=== PATIENT | female | born 1960 | race Caucasian/White ===

== ENCOUNTER 2018-06-26 14:26 | Outpatient (CLI) | payer OTHER ==
--- NOTE | 2018-06-27 09:33 | XRAY Report ---
Reason: PAIN IN LEFT FOOT Procedure Date: 06/26/2018 Accession Number: [id number] / [id number] Procedure: XR - Foot 3 View LT CPT Code: FULL RESULT: EXAM: LEFT FOOT RADIOGRAPHY EXAM DATE: 06/26/2018 02:58 PM. CLINICAL HISTORY: PAIN IN LEFT FOOT. COMPARISON: None. TECHNIQUE: 3 views. FINDINGS: Bones: No fractures or bone lesions. Joints: Mild first MTP joint DJD. No dislocation. Soft Tissues: Unremarkable. IMPRESSION: 1. No acute osseous abnormality. RADIA
== END 2018-06-26 14:27 | disposition home or self-care (01) ==
LOC: DI 14:26
PROVIDERS: ATTEND Internal Medicine
DX: M79.672 Pain in left foot (principal)

== ENCOUNTER 2018-08-04 16:42 | Outpatient (CLI) | payer MEDICARE ==
--- NOTE | 2018-08-07 00:07 | XRAY Report ---
Reason: PAIN IN RT ELBOW Procedure Date: 08/04/2018 Accession Number: [id number] / [id number] Procedure: XR - Elbow 2 View RT CPT Code: FULL RESULT: EXAM: RIGHT ELBOW RADIOGRAPHY EXAM DATE: 08/04/2018 05:10 PM. CLINICAL HISTORY: PAIN IN RT ELBOW. COMPARISON: None. TECHNIQUE: 2 views. FINDINGS: Bones: Normal. No fractures or bone lesions. Joints: Normal. No effusion. No subluxation. Soft Tissues: Normal. No soft tissue swelling. Small lateral epicondyle bone spur at the distal humerus. Tiny coronoid process bone spur. IMPRESSION: No acute findings. RADIA
== END 2018-08-04 16:43 | disposition home or self-care (01) ==
LOC: DI 16:42
PROVIDERS: ATTEND Internal Medicine
DX: M25.521 Pain in right elbow (principal)

== ENCOUNTER 2018-11-17 20:22 | Emergency (ER) | payer MEDICARE ==
--- NOTE | 2018-11-17 21:02 | ED Physician Documentation ---
PD HPI UPPER EXT INJURY - Stated complaint Stated Complaint: LT SHOULDER/NECK PX - Chief complaint Chief Complaint: Ext Problem - History obtained from History obtained from: Patient - History of Present Illness Location: Left, Shoulder, Other (with some pain to left side of neck) Type of injury: Blunt / blow ([place] and it struck left shoulder and pushed her/pinned her in the opening, until her pried open the door (several seconds). she felt her head get jostled as this happened and is having some pain left lateral neck from shoulder/clavicle area to the side of the head. No numbness nor weakness in arm. No head impact injury.) Where [place] Timing - onset: How many hours ago (1) Timing - duration: Hours (1) Timing - details: Abrupt onset, Still present Worsened by: Moving (left shoulder and ROM of the neck) Associated symptoms: No: Weakness, Numbness, Swelling Similar symptoms before: Has not had sx before Recently seen: Not recently seen Review of Systems Skin: denies: Abrasion (s), Laceration (s) Musculoskeletal: reports: Neck pain (left side laterally) Neurologic: denies: Focal weakness, Numbness, Headache PD PAST MEDICAL HISTORY - Past Medical History Cardiovascular: None Musculoskeletal: None - 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 - Present Medications Home Medications: Ambulatory Orders Medication Instructions Recorded Confirmed FLUoxetine [PROzac] 10 mg PO DAILY 11/17/18 11/17/18 Naproxen 375 mg PO BID #20 tablet 11/17/18 Oxycodone HCl/Acetaminophen 1 each PO Q6H PRN #14 tablet 11/17/18 [Percocet 5-325 mg Tablet] Prazosin [Minipress] 1 mg PO DAILY 11/17/18 11/17/18 Progesterone,Micronized 100 mg PO 11/17/18 [Progesterone] - Allergies Allergies/Adverse Reactions: Allergies Allergy/AdvReac Type Severity Reaction Status Date / Time codeine Allergy Rash Verified 11/17/18 20:33 - Social History Does the pt smoke?: No Smoking Status: Never smoker Does the pt drink ETOH?: No PD ED PE NORMAL - Vitals Vital signs reviewed: Yes - General General: Alert and oriented X 3, Well developed/nourished, Other (appears uncomfortable with left shoulder movement and is holding it guardedly to her side. ) - HEENT HEENT: Atraumatic - Neck Neck: Supple, no meningeal sign, No bony TTP, Other (tender lateral left neck in SCM muscle area. ) - Cardiac Cardiac: RRR, No murmur - Respiratory Respiratory: Clear bilaterally - Abdomen Abdomen: Soft, Non tender - Derm Derm: Normal color, Warm and dry - Extremities Extremities: Other (tender at lateral shoulder and some to AC area without deformity. ) - Neuro Neuro: Alert and oriented X 3, No motor deficit, No sensory deficit, Normal speech Eye Opening: Spontaneous Motor: Obeys Commands Verbal: Oriented GCS Score: 15 Results - Vitals Vitals: Vital Signs - 24 hr 11/17/18 11/17/18 20:26 22:51 Temperature 37.1 C 35.7 C L Heart Rate 72 67 Respiratory 19 19 Rate Blood Pressure 108/79 118/65 O2 Saturation 95 95 Oxygen O2 Source Room air - Rads (name of study) left shoulder Radiology: Prelim report reviewed, EMP read contemporaneously (no fractures.), See rad report PD MEDICAL DECISION MAKING - ED course Complexity details: reviewed results, considered differential (likely contusion though can be some AC strain. Will treat with sling. Got xray to ensure no fracture at distal clavicle. The pain to the left neck seems muscular of the SCM muscles. ), d/w patient Departure - Departure Disposition: 01 Home, Self Care Clinical Impression: Contusion of left shoulder Qualifiers: Encounter type: initial encounter Qualified Code(s): S40.012A - Contusion of left shoulder, initial encounter Neck muscle strain Qualifiers: Encounter type: initial encounter Qualified Code(s): S16.1XXA - Strain of muscle, fascia and tendon at neck level, initial encounter Condition: Stable Record reviewed to determine appropriate education?: Yes Instructions: ED Sprain Shoulder Follow-Up: Gonsalo Quezada MD [Primary Care Provider] - Prescriptions: Naproxen 375 mg PO BID #20 tablet Oxycodone HCl/Acetaminophen [Percocet 5-325 mg Tablet] 1 each PO Q6H PRN #14 tablet PRN Reason: pain Comments: There are not any fractures seen on x-ray. It sounds like a bruising of the shoulder and may be some strain of the shoulder ligaments. Also sounds like some muscle strain around the neck. Use the sling as needed for comfort over the next several days to week. Gentle range of motion the shoulder periodically. Use naproxen or ibuprofen 2-3 times daily for the next several days. Add Tylenol or Percocet if needed for pain. Follow-up if not better over the next week. Discharge Date/Time: 11/17/18 22:52
[2018-11-17] MEDS ORDERED: fentaNYL 100 MCG/2 ML VIAL IM STA (21:47)
[2018-11-17] MEDS ORDERED: KETOROLAC 30 MG/ML VIAL IM STA (21:47)
[2018-11-17] MEDS ORDERED: oxyCODONE/ACET 5/325 Prepack 4 PO STA (22:20)
--- NOTE | 2018-11-17 22:27 | XRAY Report ---
Reason: [place] Procedure Date: 11/17/2018 Accession Number: [id number] / [id number] Procedure: XR - Shoulder 3 View LT CPT Code: FULL RESULT: EXAM: LEFT SHOULDER RADIOGRAPHY EXAM DATE: 11/17/2018 10:19 PM. CLINICAL HISTORY: Left shoulder pain. [place] COMPARISON: None. TECHNIQUE: 3 views. FINDINGS: Bones: Normal. No fracture or bone lesion. Joints: The glenohumeral and acromioclavicular joints are normal. Soft tissues: The visualized hemithorax is unremarkable. No soft tissue swelling. IMPRESSION: Normal shoulder radiography. RADIA
[2018-11-17 22:52] VITALS: BP 118/65
== END 2018-11-17 22:52 | disposition home or self-care (01) ==
LOC: ED 20:22
DX: S16.1XXA Strain of muscle, fascia and tendon at neck level, initial encounter (principal); S40.012A Contusion of left shoulder, initial encounter; W24.0XXA Contact with lifting devices, not elsewhere classified, initial encounter; Y92.814 Boat as the place of occurrence of the external cause
CPT/HCPCS: 96372; 99283

== ENCOUNTER 2018-11-25 09:54 | Outpatient (CLI) | payer MEDICARE ==
--- NOTE | 2018-11-26 05:58 | XRAY Report ---
Reason: NECK PAIN Procedure Date: 11/25/2018 Accession Number: [id number] / [id number] Procedure: XR - Cervical Spine 2 View CPT Code: FULL RESULT: EXAM: CERVICAL SPINE RADIOGRAPHY EXAM DATE: 11/25/2018 10:08 AM. CLINICAL HISTORY: Neck pain. COMPARISONS: None. TECHNIQUE: 3 views. FINDINGS: Alignment: Normal. No spondylolisthesis or scoliosis. Bones: The cervical vertebral bodies and posterior elements are well visualized from the skull base through C7-T1. No fractures or bone lesions. Degenerative changes: Severe diffuse cervical degenerative changes, worst at the C5-C6 level. Next worst levels are C3-C4 and C6-C7. Soft Tissues: Normal. No prevertebral soft tissue swelling. The visualized lung apices are clear. IMPRESSION: Advanced cervical spondylosis, worst at C5-C6, but without acute abnormality seen. RADIA
== END 2018-11-25 09:55 | disposition home or self-care (01) ==
LOC: DI 09:54
PROVIDERS: ATTEND Family Medicine
DX: M47.812 Spondylosis without myelopathy or radiculopathy, cervical region (principal)
CPT/HCPCS: 72040

== ENCOUNTER 2018-12-27 18:54 | Outpatient (CLI) | payer MEDICARE ==
--- NOTE | 2018-12-28 15:19 | MRI Report ---
Reason: DEGENERATIVE DISC DISEASE, CERVICAL Procedure Date: 12/27/2018 Accession Number: [id number] / [id number] Procedure: MRI - Cervical Spine W/O CPT Code: FULL RESULT: EXAM: MRI CERVICAL SPINE WITHOUT CONTRAST EXAM DATE: 12/27/2018 07:12 PM. CLINICAL HISTORY: Neck pain after being hit by an elevator door. Left upper limb numbness. COMPARISONS: CERVICAL SPINE 2 VIEW 11/25/2018 9:59 AM. TECHNIQUE: Multiplanar, multisequence T1-weighted and fluid-sensitive sequences of the cervical spine without contrast. Other: None. FINDINGS: Neurologic Structures: The visualized posterior fossa structures are unremarkable. There is minimal cord effacement at C4-C5 secondary to bony canal narrowing. There is no cord edema or atrophy. Alignment: There is an 18-degree levoscoliosis centered on C5. There is a focal kyphosis at C6-C7. Bone Marrow: No gross fractures or bone lesions. No marrow edema. Interspace Levels/Facets: C1-C2: Unremarkable. C2-C3: Mild facet osteoarthritis causes minimal foraminal narrowing. The canal is patent. C3-C4: There is a broad-based posterior disk osteophyte complex causing mild canal narrowing. An uncovertebral osteophyte causes moderate right foraminal narrowing. There is minimal left foraminal narrowing. C4-C5: There is a broad-based posterior disk osteophyte complex causing mild canal narrowing. There is moderate right and mild left foraminal narrowing. C5-C6: There is severe disk desiccation and loss of disk height. There is a broad-based posterior disk osteophyte complex causing mild canal and foraminal narrowing. C6-C7: There is a central and right paracentral disk osteophyte complex causing mild canal narrowing with cord effacement. There is mild bilateral foraminal narrowing. C7-T1: Unremarkable. Musculature: Normal. No edema or fatty atrophy. Other: The paravertebral and prevertebral soft tissues are normal. IMPRESSION: 1. Kypholevoscoliosis centered at C5. 2. C2-C3: Mild facet osteoarthritis causes minimal foraminal narrowing. 3. C3-C4: There is mild canal narrowing. There is minimal left foraminal narrowing. 4. C4-C5: There is a broad-based posterior disk osteophyte complex causing mild canal narrowing. There is moderate right and mild left foraminal narrowing. 5. C5-C6: There is severe disk desiccation and loss of disk height. There is a broad-based posterior disk osteophyte complex causing mild canal and foraminal narrowing. 6. C6-C7: There is a central and right paracentral disk osteophyte complex causing mild canal narrowing with cord effacement. There is mild bilateral foraminal narrowing. RADIA
== END 2018-12-27 18:55 | disposition home or self-care (01) ==
LOC: DI 18:54
PROVIDERS: ATTEND Orthopaedic Surgery
DX: M50.30 Other cervical disc degeneration, unspecified cervical region (principal); M47.812 Spondylosis without myelopathy or radiculopathy, cervical region; M25.78 Osteophyte, vertebrae; M48.02 Spinal stenosis, cervical region; M41.82 Other forms of scoliosis, cervical region
CPT/HCPCS: 72141

== ENCOUNTER 2019-03-06 15:37 | Outpatient (CLI) | payer MEDICARE, MEDICAID ==
--- NOTE | 2019-03-21 08:49 | Mammography Report ---
Reason: SCREENING MAMMO Procedure Date: 03/06/2019 Accession Number: [id number] / [id number] Procedure: ELROY - Screening Mammo w/Eliezer CPT Code: FULL RESULT: EXAM: Screening Mammo w/Eliezer DATE: 03/06/2019 4:49 PM CLINICAL HISTORY: Screening TECHNIQUE: (B) - Bilateral CC and MLO views were obtained. COMPARISON: None PARENCHYMAL PATTERN: (A) - The breasts demonstrate scattered fibroglandular densities bilaterally. FINDINGS: In the RIGHT breast, there is a sharply marginated lobulated subareolar mass seen on both 2-D and 3-D mammography. Otherwise, there are no suspicious masses, calcifications, or areas of distortion. IMPRESSION: Incomplete examination. BI-RADS category 0. RECOMMENDATION: (ADDUS) - Targeted ultrasound recommended. Right breast. BI-RADS CATEGORY: (0) - Incomplete Examination - need additional evaluation. STANDARD QUALIFYING STATEMENTS: 1. This examination was not reviewed with the aid of Computer-Aided Detection (CAD). 2. A negative or benign imaging report should not preclude biopsy if clinically suspicious findings are present. 3. Dense breasts may obscure an underlying neoplasm. 4. This examination was reviewed with the aid of 3D breast imaging (tomosynthesis).
== END 2019-03-06 15:38 | disposition home or self-care (01) ==
LOC: DI 15:37
DX: Z12.31 Encounter for screening mammogram for malignant neoplasm of breast (principal); R92.8 Other abnormal and inconclusive findings on diagnostic imaging of breast
CPT/HCPCS: 77063; 77067

== ENCOUNTER 2019-05-09 14:59 | Outpatient (CLI) | payer MEDICARE, MEDICAID ==
[2019-05-09 17:40] LABS: ALBUMIN 4.5 g/dL (3.2-5.5); ALBUMIN/GLOBULIN RATIO 1.2 (1.0-2.2); ALKALINE PHOSPHATASE 60 IU/L (42-121); ALT ALANINE AMINOTRANSFERASE 33 IU/L (10-60); AST ASPARTATE AMINOTRANSFERASE 29 IU/L (10-42); BILIRUBIN,TOTAL 0.7 mg/dL (0.2-1.0); BUN - BLOOD UREA NITROGEN 12 mg/dL (6-20); CALCIUM 9.1 mg/dL (8.5-10.3); CARBON DIOXIDE - CO2 26 mmol/L (21-32); CHLORIDE 104 mmol/L (101-111); CHOL/HDL RATIO 4.6 (<4.4); CHOLESTEROL 233 mg/dL; CREATININE 0.9 mg/dL (0.4-1.0); GFR - MDRD 64 (>89); GLUCOSE 100 mg/dL (70-100); HDL CHOLESTEROL 51 mg/dL; LDL CHOLESTEROL,CALCULATED 154 mg/dL; SODIUM 139 mmol/L (135-145); TOTAL PROTEIN 8.2 g/dL (6.7-8.2); VLDL CHOLESTEROL 28 mg/dL
[2019-05-09 17:53] LABS: HB2 TOTAL 14.9 g/dL; HEMOGLOBIN A1C 0.59 g/dL; HEMOGLOBIN A1C % 5.8 % (4.6-6.2)
== END 2019-05-09 15:00 | disposition home or self-care (01) ==
LOC: LAB.S 14:59
PROVIDERS: ATTEND Internal Medicine
DX: E66.9 Obesity, unspecified (principal)
CPT/HCPCS: 36415; 80053; 80061; 83036; 83721; 84443

== ENCOUNTER 2020-06-22 09:06 | Emergency (ER) | payer MEDICARE, MEDICAID ==
[2020-06-22] MEDS ORDERED: KETOROLAC 15 MG/ML VIAL IVP STA ×2 (09:42→10:22)
[2020-06-22] MEDS ORDERED: LACTATED RINGERS 2,000 ML IV STA (09:43)
[2020-06-22 09:47] LABS: BASOPHILS # (AUTO) 0.1 10^3/uL (0.0-0.1); BASOPHILS % (AUTO) 0.7 %; EOSINOPHILS # (AUTO) 0.4 10^3/uL (0.0-0.7); EOSINOPHILS % (AUTO) 4.2 %; HGB - HEMOGLOBIN 14.3 g/dL (12.0-16.0); LYMPHOCYTES # (AUTO) 2.4 10^3/uL (1.5-3.5); LYMPHOCYTES % (AUTO) 27.4 %; MEAN CORPUSCULAR HEMOGLOBIN 29.3 pg (27.0-31.0); MEAN CORPUSCULAR HGB CONC 32.4 g/dL (32.0-36.0); MEAN CORPUSCULAR VOLUME 90.4 fL (81.0-99.0); MEAN PLATELET VOLUME 10.7 fL (7.9-10.8); MONOCYTES # (AUTO) 0.6 10^3/uL (0.0-1.0); MONOCYTES % (AUTO) 6.8 %; NEUTROPHILS # (AUTO) 5.3 10^3/uL (1.5-6.6); NEUTROPHILS % (AUTO) 60.6 %; PLT - PLATELET COUNT 263 10^3/uL (130-450); RED BLOOD COUNT 4.88 10^6/uL (4.20-5.40); RED CELL DISTRIBUTION WIDTH 13.3 % (12.0-15.0); WHITE BLOOD COUNT 8.8 x10^3/uL (4.8-10.8)
[2020-06-22 09:59] LABS: ALBUMIN/GLOBULIN RATIO 1.3 (1.0-2.2); CALCIUM 9.3 mg/dL (8.5-10.3); CREATININE 0.8 mg/dL (0.4-1.0); TOTAL PROTEIN 7.2 g/dL (6.7-8.2)
[2020-06-22] MEDS ORDERED: IOVERSOL 320 100 ML VIAL IVP ONE ×2 (09:59→11:18)
[2020-06-22] MEDS ORDERED: ONDANSETRON 4 MG/2 ML VIAL IVP STA (10:22)
--- NOTE | 2020-06-22 11:08 | CT Report ---
PROCEDURE: Abdomen/Pelvis W INDICATIONS: Right flank pain, diffuse abd pain CONTRAST: IV CONTRAST: Optiray 320 ml: 100 PO CONTRAST: *NO PO CONTRAST TECHNIQUE: After the administration of intravenous contrast, 5 mm thick sections acquired from the diaphragms to the symphysis. 5 mm thick coronal and sagittal reformats were acquired. For radiation dose reducti on, the following was used: automated exposure control, adjustment of mA and/or kV according to joshua ent size. COMPARISON: None. FINDINGS: Image quality: Excellent. ABDOMEN: Lung bases: There is a 2 mm nodule in the lingula (series 4 image /41). Heart size is normal. Solid organs: Hepatic steatosis. There is a 7 mm low-density nodule in the hepatic dome, likely a cy st. Liver and spleen are normal in size and enhancement. Gallbladder is surgically absent. Biliary system is non dilated. Pancreas enhances normally. No adrenal nodules. Kidneys demonstrate normal size and enhancement, without hydronephrosis. Peritoneum and bowel: There are scattered colonic diverticula. No CT findings to suggest acute diver ticulitis. Possible mild colonic wall thickening involving cecum and ascending colon, as well as sigm oid colon. Appendix is not visualized. No CT findings to suggest acute appendicitis. Bowel loops demo nstrate normal caliber. No free fluid or air. Nodes and vessels: No retroperitoneal or mesenteric adenopathy by size criteria. Aorta and inferior vena cava are normal in size. Miscellaneous: Small fat-containing umbilical hernia is noted. PELVIS: Genitourinary: Bladder wall thickness is normal. Miscellaneous: No inguinal hernias or adenopathy. Bones: No suspicious bony lesions. No vertebral body compression fractures. IMPRESSION: 1. Possible mild colitis involving the cecum, ascending colon and sigmoid colon. 2. Diverticulosis without acute diverticulitis. 3. No findings to suggest small bowel obstruction. 4. Hepatic steatosis. A 7 mm low-density nodule in the hepatic dome is most likely a cyst. 5. A 2 mm nodule in the lingula. Fleischner Society criteria for SOLID lung nodule followup. Nodule size (mm) Low-risk patient High-risk patient ?4 No follow-up needed Follow-up at 12 mo; if no change, no further follow-up >4-[address] at 12 mo; if no change, no further follow-up needed. Initial follow-up CT at 6-12 mo, then 18-24 mo if no change. >6-8 Initial follow-up CT at 6-12 mo, then 18-24 mo if no change. Initial follow-up CT at 3-6 mo, then 9-12 mo and 24 mo if no change. >8 Follow-[address] at 3, 9, 24 mo. Or PET and/or biopsy. Same as for low-risk pts. Reviewed by: Estrella Spann MD on 06/22/2020 11:06 AM PST Approved by: Estrella Spann MD on 06/22/2020 11:06 AM PST Station ID: [id number]
[2020-06-22 11:48] LABS: BILIRUBIN,URINE NEGATIVE (NEGATIVE); GLUCOSE, URINE (UA) NEGATIVE (NEGATIVE); KETONES,URINE (UA) NEGATIVE (NEGATIVE); LEUKOCYTE ESTERASE, URINE NEGATIVE (NEGATIVE); NITRITE,URINE NEGATIVE (NEGATIVE); OCCULT BLOOD,URINE SMALL (NEGATIVE); PROTEIN,URINE NEGATIVE (NEGATIVE); UROBILINOGEN,URINE 0.2 (NORMAL) E.U./dL (NORMAL)
[2020-06-22 12:03] LABS: CLARITY,URINE CLEAR (CLEAR)
[2020-06-22 12:22] LABS: BACTERIA,URINE None Seen /HPF (None Seen); RBC,URINE 0-5 /HPF (0-5); SQUAMOUS EPITHELIAL CELL,UR RARE Squamous (<= Few)
[2020-06-22] MEDS ORDERED: fentaNYL 100 MCG/2 ML VIAL IVP STA (12:30)
--- NOTE | 2020-06-22 13:12 | ED Physician Documentation ---
History of Present Illness - Stated complaint Stated Complaint: R SIDE PX - Chief complaint Chief Complaint: Back Pain - History obtained from History obtained from: Patient - Additonal information Additional information: 60-year-old woman, previously healthy, PSH hysterectomy, cholecystectomy p/w R flank pain radiating to front X 2 days, gradual onset, intermittent, severe, sharp quality, worse with deep breathing, a/w nausea but no vomiting. no fevers, diarrhea, urinary sx, cough, sob, cp. no traumatic injury. Review of Systems Ten Systems: 10 systems reviewed and negative Constitutional: denies: Fever, Chills GI: reports: Abdominal Pain, Nausea. denies: Vomiting : denies: Dysuria Musculoskeletal: reports: Back pain PD PAST MEDICAL HISTORY - Past Medical History Past Medical History: Yes Cardiovascular: None Respiratory: None Neuro: None Endocrine/Autoimmune: None GI: None RELIEF MATE: None : None HEENT: None Psych: Depression, Anxiety, Post traumatic stress disorder Musculoskeletal: None Derm: None - Past Surgical History General: Cholecystectomy Ortho: Arthroscopic surgery /RELIEF MATE: Hysterectomy HEENT: Tonsil/Adenoidectomy - Present Medications Home Medications: Ambulatory Orders Medication Instructions Recorded Confirmed FLUoxetine [PROzac] 10 mg PO BID 11/17/18 06/22/20 oxyCODONE/ACET 5/325 [Percocet 5 1 each PO Q4-6H PRN 2 Days #8 06/22/20 mg/325 mg] tablet - Allergies Allergies/Adverse Reactions: Allergies Allergy/AdvReac Type Severity Reaction Status Date / Time codeine Allergy Rash Verified 06/22/20 09:17 morphine Allergy Headache Verified 06/22/20 09:17 - Social History Does the pt smoke?: No Smoking Status: Never smoker Does the pt drink ETOH?: No Does the pt have substance abuse?: No - Immunizations Immunizations are current?: Yes PD ED PE NORMAL - Vitals Vital signs reviewed: Yes - General General: Alert and oriented X 3 - HEENT HEENT: Atraumatic, PERRL, EOMI - Neck Neck: Supple, no meningeal sign - Cardiac Cardiac: RRR - Respiratory Respiratory: No respiratory distress, Clear bilaterally - Abdomen Abdomen: Other (diffuse discomfort to palpation. negative fermin sign) - Female Female : Deferred - Rectal Rectal: Deferred - Back Back: Other (R CVA ttp) - Derm Derm: Normal color - Extremities Extremities: No deformity - Neuro Neuro: Alert and oriented X 3 - Psych Psych: Normal mood, Normal affect Results - Vitals Vitals: Vital Signs - 24 hr 06/22/20 06/22/20 06/22/20 09:14 09:32 10:16 Temperature 36.0 C L 37.4 C Heart Rate 85 77 76 Respiratory 16 14 14 Rate Blood Pressure 146/85 H 130/90 H 138/91 H O2 Saturation 97 98 100 06/22/20 06/22/20 12:35 13:20 Temperature 37 C 37.1 C Heart Rate 69 66 Respiratory 22 12 Rate Blood Pressure 137/78 H 130/88 H O2 Saturation 99 97 Oxygen O2 Source Room air - Labs Labs: Laboratory Tests 06/22/20 06/22/20 06/22/20 09:27 09:27 11:29 WBC 8.8 RBC 4.88 Hgb 14.3 Hct 44.1 MCV 90.4 MCH 29.3 MCHC 32.4 RDW 13.3 Plt Count 263 MPV 10.7 Neut # (Auto) 5.3 Lymph # (Auto) 2.4 Sharp # (Auto) 0.6 Eos # (Auto) 0.4 Baso # (Auto) 0.1 Absolute Nucleated RBC 0.00 Nucleated RBC % 0.0 Sodium 138 Potassium 3.9 Chloride 105 Carbon Dioxide 24 Anion Gap 9.0 BUN 15 Creatinine 0.8 Estimated GFR (MDRD) 73 L Glucose 99 Calcium 9.3 Total Bilirubin 1.0 AST 20 ALT 18 Alkaline Phosphatase 65 Total Protein 7.2 Albumin 4.0 Globulin 3.2 Albumin/Globulin Ratio 1.3 Lipase 26 Urine Color YELLOW Urine Clarity CLEAR Urine pH 5.0 Ur Specific Marion <=1.005 Urine Protein NEGATIVE Urine Glucose (UA) NEGATIVE Urine Ketones NEGATIVE Urine Occult Blood SMALL H Urine Nitrite NEGATIVE Urine Bilirubin NEGATIVE Urine Urobilinogen 0.2 (NORMAL) Ur Leukocyte Esterase NEGATIVE Urine RBC 0-5 Urine WBC 0-3 Ur Squamous Epith Cells RARE Squamous Urine Bacteria None Seen Ur Microscopic Review INDICATED Urine Culture Comments NOT INDICATED PD MEDICAL DECISION MAKING - ED course ED course: 60-year-old woman presented with sharp flank pain radiating to abdomen for the past day, without any fever, shortness of breath, traumatic injury, urinary symptoms. She has had her gallbladder out as well as a hysterectomy. Still has her appendix. CT showing no evidence of appendicitis, no stones, but urinalysis does show small amount of blood. Possible stone missed on CT. The CT did show some incidental findings which we discussed and she will follow-up with her primary doctor about this. It also showed mild colitis and diverticulosis which we discussed. Because she is not having any symptoms like diarrhea or fever I am not treating her with antibiotics right now but she will monitor and return for any new or worsening symptoms. Patient planning to follow-up with her primary doctor this week. Departure - Departure Disposition: Home, Self Care Clinical Impression: Microscopic hematuria, Flank pain, Colitis, Diverticulosis Condition: Good Instructions: ED Abdominal Pain Unkn Cause Prescriptions: oxyCODONE/ACET 5/325 [Percocet 5 mg/325 mg] 1 each PO Q4-6H PRN 2 Days #8 tablet PRN Reason: Pain Comments: You were seen in the emergency department for abdominal pain and flank pain. Your CAT scan did not show a kidney stone, but you do have a small amount of blood in your urine. Your CT did not show mild colitis (inflammation of the intestines). Because you do not have a fever I am not going to treat you with antibiotics at this time, but you should return if you have any fevers or if your abdominal pain gets worse. You also have diverticulosis, which is not symptomatic right now. You should follow-up with your primary doctor about this, as well as the liver and lung nodules that we talked about. Return to the ED for any new or worsening symptoms. Discharge Date/Time: 06/22/20 13:28
[2020-06-22 13:20] VITALS: BP 130/88
== END 2020-06-22 13:28 | disposition home or self-care (01) ==
LOC: ED 09:06
DX: K57.92 Diverticulitis of intestine, part unspecified, without perforation or abscess without bleeding (principal); K52.9 Noninfective gastroenteritis and colitis, unspecified; R31.29 Other microscopic hematuria; R10.9 Unspecified abdominal pain
CPT/HCPCS: 36415; 74177; 80053; 81001; 83690; 85025; 96374; 96375; 96376; 99284; 99285; J7120; Q9967; 81003; 87086

== ENCOUNTER 2020-08-27 11:24 | Outpatient (CLI) | payer MEDICARE, MEDICAID | END 2020-08-27 11:25 | disposition home or self-care (01) | LOC: NS 11:24 | PROVIDERS: ATTEND Nurse Practitioner Family | DX: Z71.3 Dietary counseling and surveillance (principal); E66.9 Obesity, unspecified; Z68.31 Body mass index [BMI] 31.0-31.9, adult | CPT/HCPCS: 97802 ==

== ENCOUNTER 2020-09-14 15:25 | Outpatient (CLI) | payer MEDICARE, MEDICAID ==
--- NOTE | 2020-09-16 11:39 | Mammography Report ---
BILATERAL DIGITAL SCREENING MAMMOGRAM 3D/2D: 09/14/2020 CLINICAL: Routine screening. Comparison is made to exams dated: 03/06/2019 mammogram and 02/15/2018 mammogram - [facility]. The tissue of both breasts is predominantly fatty. No significant masses, calcifications, or other findings are seen in either breast. There has been no significant interval change. IMPRESSION: NEGATIVE There is no mammographic evidence of malignancy. A 1 year screening mammogram is recommended. This exam was interpreted at Station ID: [id number]. NOTE: For mammograms, a report in lay terms will be sent to the patient. Approximately 15% of breast malignancies will not be visualized mammographically. In the management of a palpable breast mass, a negative mammogram must not discourage biopsy of a clinically suspicious lesion. Electronically Signed By: Orestes Brady M.D. aty/penrad:09/15/2020 07:50:46 ACR BI-RADS Category 1: Negative 3341F PARENCHYMAL PATTERN: (F) - The breast(s) demonstrate(s) diffuse fatty replacement. BI-RADS CATEGORY: (1) - 1 RECOMMENDATION: (ANNUAL) - Recommend routine annual screening mammography. [id number] 1 year screening LATERALITY: (B)
== END 2020-09-14 15:26 | disposition home or self-care (01) ==
LOC: DI.S 15:25
PROVIDERS: ATTEND Nurse Practitioner Family
DX: Z12.31 Encounter for screening mammogram for malignant neoplasm of breast (principal)

== ENCOUNTER 2020-10-02 15:47 | Emergency (ER) | payer MEDICARE, MEDICAID ==
[2020-10-02 15:52] VITALS: BP 126/80
--- NOTE | 2020-10-02 16:02 | ED Physician Documentation ---
History of Present Illness - Stated complaint Stated Complaint: LT FINGER INJ - Chief complaint Chief Complaint: Ext Problem - Additonal information Additional information: 60-year-old female presents emergency department for evaluation of acute left ring finger pain. She was attempting to order picker her cat when she stumbled forward and jammed the ring finger on a barbecue pit. She reports that it was hyperextended backwards and obviously malrotated therefore she pulled it into a forward position. Since then she has had swelling on the palmar side of the ring finger and pain with movement. Patient is right-hand dominant. No history of previous injury to this hand. 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 : None HEENT: None Psych: Depression, Anxiety, Post traumatic stress disorder Musculoskeletal: None Derm: None - Past Surgical History General: Cholecystectomy Ortho: Arthroscopic surgery /MOBI[employer] ARCHITECT: Hysterectomy HEENT: Tonsil/Adenoidectomy - Present Medications Home Medications: Ambulatory Orders Medication Instructions Recorded Confirmed FLUoxetine [PROzac] 10 mg PO BID 11/17/18 06/22/20 oxyCODONE/ACET 5/325 [Percocet 5 1 each PO Q4-6H PRN 2 Days #8 06/22/20 mg/325 mg] tablet Ibuprofen [Motrin] 600 mg PO Q6H PRN #30 tab 10/02/20 - Allergies Allergies/Adverse Reactions: Allergies Allergy/AdvReac Type Severity Reaction Status Date / Time codeine Allergy Rash Verified 10/02/20 15:49 morphine Allergy Headache Verified 10/02/20 15:49 - Social History Does the pt smoke?: No Smoking Status: Never smoker Does the pt drink ETOH?: No Does the pt have substance abuse?: No - Immunizations Immunizations are current?: Yes PD ED PE EXPANDED - General General: Alert, No acute distress - Extremities Extremities: Left finger(s) (swelling, ecchymosispalmar side of ring finger from MCP to DIP. No deformity. Able to flex and extend digit, though not against resistance. Distal CMST intact) Results - Vitals Vitals: Vital Signs - 24 hr 10/02/20 15:49 Temperature 36.5 C Heart Rate 73 Respiratory 16 Rate Blood Pressure 126/80 O2 Saturation 96 Oxygen O2 Source Room air - Rads (name of study) left finger Radiology: Final report received (No fracture no osseous lesion.) PD MEDICAL DECISION MAKING - ED course Complexity details: reviewed results, re-evaluated patient ED course: Well-appearing 4-year-old female presents emergency department for acute left ring pain sustained when she jammed her finger against a barbecue pit. It sounds like she dislocated it but at home she was able to pull the finger back into alignment. On exam she does have swelling on the palmar side of the finger between the MCP and PIP joint. However she does have preserved flexion and extension of this digit against resistance. X-ray imaging does not show any acute fractures or osseous lesions. Suspect a jamming contusion injury. Patient was given a splint. Recommend ice and ibuprofen. Emergent return pre cautions were discussed. Departure - Departure Disposition: Home, Self Care Clinical Impression: Contusion of left index finger Qualifiers: Encounter type: initial encounter Damage to nail status: without damage Qualified Code(s): S60.022A - Contusion of left index finger without damage to nail, initial encounter Jammed interphalangeal joint of finger of left hand Qualifiers: Encounter type: initial encounter Qualified Code(s): S69.92XA - Unspecified injury of left wrist, hand and finger(s), initial encounter Condition: Stable Record reviewed to determine appropriate education?: Yes Instructions: ED Contusion Finger Prescriptions: Ibuprofen [Motrin] 600 mg PO Q6H PRN #30 tab PRN Reason: Pain Comments: You are seen today in the emergency department for left finger pain after you jammed it on a barbecue pit. It sounds like you did dislocated at home but you were able to pull it back into normal alignment. Reassuringly the x-ray of the finger does not show any broken bones. You most likely have a severe sprain and contusion of this finger. I do recommend that you ice the finger for 10 minutes 2-3 times a day as well as take ibuprofen for discomfort. You may wear the splint provided to help with discomfort over the next few days. I would expect that the pain is markedly better over the next 7 to 10 days. If not improving please return to the emergency department for reevaluation.
--- NOTE | 2020-10-02 16:19 | XRAY Report ---
PROCEDURE: Finger(s) LT INDICATIONS: jammed and dislocated left ring finger TECHNIQUE: AP hand, 2 views of the left fourth finger(s) acquired. COMPARISON: None FINDINGS: Bones: No fractures or dislocations. No suspicious bony lesions. Soft tissues: No suspicious soft tissue calcifications. IMPRESSION: No fracture. No osseous lesion. If there are persistent symptoms or continued clinical concern for pa thology, then repeat plain film radiographs (7-10 days) or advanced imaging (CT, MR, bone scan) shoul d be considered for further evaluation. Reviewed by: Machelle Guthrie MD, PhD on 10/02/2020 4:18 PM PDT Approved by: Machelle Guthrie MD, PhD on 10/02/2020 4:18 PM PDT Station ID: [id number]
== END 2020-10-02 16:47 | disposition home or self-care (01) ==
LOC: ED 15:47
DX: S60.022A Contusion of left index finger without damage to nail, initial encounter (principal); S69.92XA Unspecified injury of left wrist, hand and finger(s), initial encounter; X50.1XXA Overexertion from prolonged static or awkward postures, initial encounter; Y93.K9 Activity, other involving animal care; Y92.89 Other specified places as the place of occurrence of the external cause
CPT/HCPCS: 99283

== ENCOUNTER 2020-11-14 11:43 | Outpatient (CLI) | payer MEDICARE, MEDICAID ==
--- NOTE | 2020-11-14 13:15 | XRAY Report ---
PROCEDURE: Finger(s) LT INDICATIONS: UNSPECIFIED DISLOCATION OF LT INDEX FINGER TECHNIQUE: AP hand, 3 views of the fourth finger(s) acquired. COMPARISON: 10/02/2020 FINDINGS: Bones: Subtle cortical irregularity involving lateral aspect of fourth middle phalangeal base concern ing for avulsion injury in this area, suggest clinical correlation. No other fracture or dislocation is seen. No suspicious bony lesions. Soft tissues: No suspicious soft tissue calcifications. IMPRESSION: Finding may represent subtle avulsion injury involving lateral aspect of fourth middle phalangeal bas e. No other fracture or dislocation. Reviewed by: David Luis MD on 11/14/2020 1:13 PM PDT Approved by: David Luis MD on 11/14/2020 1:13 PM PDT Station ID: [id number]
== END 2020-11-14 11:44 | disposition home or self-care (01) ==
LOC: DI.S 11:43
PROVIDERS: ATTEND Nurse Practitioner Family
DX: S63.251D Unspecified dislocation of left index finger, subsequent encounter (principal)

== ENCOUNTER 2021-03-04 13:43 | Outpatient (CLI) | payer MEDICARE, MEDICAID | END 2021-03-04 13:44 | disposition home or self-care (01) | LOC: NS 13:43 | PROVIDERS: ATTEND Nurse Practitioner Family | DX: Z71.3 Dietary counseling and surveillance (principal); E66.9 Obesity, unspecified; Z68.35 Body mass index [BMI] 35.0-35.9, adult | CPT/HCPCS: 97803 ==

== ENCOUNTER 2021-04-14 15:24 | Outpatient (CLI) | payer MEDICARE, MEDICAID | END 2021-04-14 15:25 | disposition home or self-care (01) | LOC: NS 15:24 | PROVIDERS: ATTEND Nurse Practitioner Family | DX: Z71.3 Dietary counseling and surveillance (principal); E66.9 Obesity, unspecified; Z68.35 Body mass index [BMI] 35.0-35.9, adult | CPT/HCPCS: 97803 ==